=== PATIENT | male | born 1940 | race Caucasian/White ===

== ENCOUNTER → 2016-09-08 | Day surgery (SDC) | payer MEDICARE, OTHER ==
[~2016-09-08] VITALS: Ht 190.5 cm; Wt 99.9 kg
[~2016-09-08] MED LIST: ALLOPURINOL300 MG PO; AMARYL1 MG PO; ASPIRIN E.C. 8181 MG PO; B-121000 MCG PO; BACTRIM DS 8001 TAB PO; BYSTOLIC10 MG PO; CRESTOR 10MG10 MG PO; CULTURELLE CAP1 EAC1 PO; CULTURELLE10 Billion PO; CYMBALTA 60MG60 MG PO; DOXYCYCLINE; DOXYCYCLINE HY100 MG PO; DULCOLAX S10 MG/SUPP RC; DUO-KAPS1 CAP PO; ETODOLAC ER500 MG PO; FLOMAX 0.40.4 MG/CAP PO; GABAPENTIN; GLUCOPHAGE1000 MG PO; HCTZ 25MG TAB25 MG PO; HORIZANT600 MG PO; INVANZ INJ1 G/VIAL IV; JANUMET 1000 MG1 TA1 PO; LIDODERM 5% PATC1 EA TP; LODINE PO; LUNESTA 1MG TAB1 MG PO; LUTEIN 15 MG-0.1 SGL PO; MACROBID 1100 MG/CAP PO; MAREPA1200 MG PO; MASON NATURAL1200 MG PO; MELATONIN PO; MELATONIN5 M1 PO; NEURONTIN600 MG/TAB PO; PAMELOR 25MG25 MG PO; PROSCAR 5MG5 MG PO; RAPAFLO8 MG; REQUIP0.25 MG PO; TESTOST TOP; TYLENOL EXTRA500 M1 PO; ULTRAM 50MG TAB50 MG PO; VANCOCIN HCL1 GM IV; VITAMIN B11000 MCG/M IM; VITAMIND3 5000 PO; VOGELXO; XANAX .25M0.25 MG/TA PO; ZYLOPRIM 100MG100 MG PO; [UNRECOGNIZED DRUG - REMARK]
[2016-09-08 13:45] VITALS: BP 134/66; PULSE 66; TEMP 97.7
[2016-09-08 15:54] VITALS: BP 101/59; PULSE 71; TEMP 98.6
[2016-09-08 16:10] VITALS: BP 144/95; PULSE 67
[2016-09-08 16:25] VITALS: BP 96/52; PULSE 68
== END ==
LOC: SDCO 12:02
DX: M86.171 Other acute osteomyelitis, right ankle and foot (principal); M86.671 Other chronic osteomyelitis, right ankle and foot; M20.41 Other hammer toe(s) (acquired), right foot; M10.9 Gout, unspecified; G47.33 Obstructive sleep apnea (adult) (pediatric); E11.40 Type 2 diabetes mellitus with diabetic neuropathy, unspecified; E29.1 Testicular hypofunction; M19.042 Primary osteoarthritis, left hand; M19.041 Primary osteoarthritis, right hand; M47.896 Other spondylosis, lumbar region; E78.5 Hyperlipidemia, unspecified; N40.0 Benign prostatic hyperplasia without lower urinary tract symptoms; N52.9 Male erectile dysfunction, unspecified; I11.9 Hypertensive heart disease without heart failure; Z79.899 Other long term (current) drug therapy; Z86.14 Personal history of Methicillin resistant Staphylococcus aureus infection
CPT/HCPCS: J0690; J1100; J1885; J2250; J2405; J2704; J2765; J3010; J3370; J7030; J7050

== ENCOUNTER → 2017-01-03 | Outpatient (CLI) | payer MEDICARE, OTHER | LOC: MHCPAIN 09:30 | DX: G89.29 Other chronic pain (principal); M47.817 Spondylosis without myelopathy or radiculopathy, lumbosacral region; M48.06 Spinal stenosis, lumbar region | CPT/HCPCS: G0463 ==

== ENCOUNTER 2017-01-24 14:36 | Day surgery (SDC) | payer MEDICARE, OTHER ==
[~2017-01-24] VITALS: Ht 190.5 cm; Wt 97.4 kg
[~2017-01-24 14:36] MED LIST changes: -ASPIRIN E.C. 8181 MG PO; -LODINE PO; -MELATONIN5 M1 PO; -VOGELXO
[2017-01-24 15:17] VITALS: BP 136/66; PULSE 70; TEMP 98
[2017-01-24] MEDS ORDERED: DOXYCYCLINE HY100 MG PO (15:37)
[2017-01-24] MEDS ORDERED: LODINE PO (15:39)
[2017-01-24] MEDS ORDERED: GLUCOPHAGE1000 MG PO (15:44)
[2017-01-24] MEDS ORDERED: MELATONIN5 M1 PO (15:47)
[2017-01-24] MEDS ORDERED: ASPIRIN E.C. 8181 MG PO (15:57)
[2017-01-24] MEDS ORDERED: B-121000 MCG PO (16:09)
[2017-01-24] MEDS ORDERED: VOGELXO (16:10)
[2017-01-24 19:15] VITALS: BP 110/79; PULSE 75
[2017-01-24 19:31] VITALS: BP 141/82; PULSE 72
== END 2017-01-24 19:56 | disposition home or self-care (01) ==
LOC: SDCO 14:36 → JCC 18:07 → SDCO 19:56
DX: L97.519 Non-pressure chronic ulcer of other part of right foot with unspecified severity (principal); M19.90 Unspecified osteoarthritis, unspecified site; M86.171 Other acute osteomyelitis, right ankle and foot; E11.42 Type 2 diabetes mellitus with diabetic polyneuropathy; I10 Essential (primary) hypertension; E78.5 Hyperlipidemia, unspecified; G47.33 Obstructive sleep apnea (adult) (pediatric); F10.19 Alcohol abuse with unspecified alcohol-induced disorder; E66.3 Overweight; S12.201A Unspecified nondisplaced fracture of third cervical vertebra, initial encounter for closed fracture; N40.1 Benign prostatic hyperplasia with lower urinary tract symptoms; E79.0 Hyperuricemia without signs of inflammatory arthritis and tophaceous disease; F41.9 Anxiety disorder, unspecified; M10.9 Gout, unspecified; F32.9 Major depressive disorder, single episode, unspecified; Z82.49 Family history of ischemic heart disease and other diseases of the circulatory system; Z80.0 Family history of malignant neoplasm of digestive organs; Z82.61 Family history of arthritis; Z79.4 Long term (current) use of insulin; W10.9XXA Fall (on) (from) unspecified stairs and steps, initial encounter
CPT/HCPCS: OP; J0690; J2704; J3010; J7030

== ENCOUNTER → 2017-08-06 | Outpatient (CLI) | payer MEDICARE, OTHER ==
[~2017-08-06] MED LIST changes: +ASPIRIN E.C. 8181 MG PO; +LODINE PO; +MELATONIN5 M1 PO; +VOGELXO
== END ==
LOC: ZCOL.LAB 16:09
DX: Z11.2 Encounter for screening for other bacterial diseases (principal)

== ENCOUNTER 2017-09-18 08:45 | Outpatient (RCR) | payer MEDICARE, OTHER | END 2017-12-04 08:56 | disposition home or self-care (01) | LOC: WSPT 08:45 | DX: Z47.89 Encounter for other orthopedic aftercare (principal); Z98.1 Arthrodesis status | CPT/HCPCS: G8978-GP; G8979-GP ==

== ENCOUNTER 2018-01-20 10:08 | Emergency (ER) | payer MEDICARE, OTHER ==
[~2018-01-20] VITALS: Ht 190.5 cm; Wt 101.4 kg
[2018-01-20 10:10] VITALS: TEMP 98
[2018-01-20] MEDS ORDERED: LYRICA 150MG C150 MG PO (10:46)
[2018-01-20] MEDS ORDERED: CYMBALTA 60MG60 MG PO (10:48)
[2018-01-20] MEDS ORDERED: LODINE PO (10:48)
[2018-01-20] MEDS ORDERED: CRESTOR 10MG10 MG PO (10:49)
[2018-01-20] MEDS ORDERED: ULTRAM 50MG TAB50 MG PO (10:49)
[2018-01-20] MEDS ORDERED: LIDODERM 5% PATC1 EA TP (10:49)
[2018-01-20] MEDS ORDERED: GLUCOPHAGE500 MG/TAB PO (10:50)
[2018-01-20] MEDS ORDERED: JANUVIA50 MG PO (10:50)
[2018-01-20] MEDS ORDERED: BYSTOLIC10 MG PO (10:51)
[2018-01-20] MEDS ORDERED: ZYLOPRIM 100MG100 MG PO (10:51)
[2018-01-20] MEDS ORDERED: HCTZ 25MG TAB25 MG PO (10:51)
[2018-01-20] MEDS ORDERED: LUNESTA3 MG PO (10:52)
[2018-01-20] MEDS ORDERED: REQUIP0.25 MG PO (10:53)
[2018-01-20] MEDS ORDERED: PROSCAR 5MG5 MG PO (10:53)
[2018-01-20] MEDS ORDERED: B-121000 MCG PO (10:54)
[2018-01-20] MEDS ORDERED: COLACE 100100 MG/CAP PO (10:54)
[2018-01-20] MEDS ORDERED: BENEFIBER PO (10:54)
[2018-01-20] MEDS ORDERED: VITAMIND3 5000 PO (10:56)
[2018-01-20] MEDS ORDERED: ONE-A-DAY MEN'S1 TAB PO (10:57)
[2018-01-20] MEDS ORDERED: LUTEIN20 M1 PO (10:58)
[2018-01-20] MEDS ORDERED: MASON NATURAL1200 MG PO (10:58)
[2018-01-20] MEDS ORDERED: ZEAXANTHIN PO (10:59)
[2018-01-20] MEDS ORDERED: MELATONIN5 M1 PO (10:59)
[2018-01-20] MEDS ORDERED: ASPIRIN E.C. 8181 MG PO (11:00)
[2018-01-20 11:01] LABS: BASO % 0.4 % (0.0-2.0); EOS # 0.3 (0.0-0.7); EOS % 5.1 % (0-4.0); GRAN # 3.4 (1.4-6.5); GRAN % 67.6 % (42.2-75.2); HEMATOCRIT 30.7 % (42.0-52.0); HEMOGLOBIN 10.4 g/dl (13.5-18.0); LYMPH % 18.8 % (20.0-51.0); MEAN CELL VOLUME 87 fl (80.0-100.0); MEAN CORPUSCULAR HEMOGLOBIN 30 pg (27.0-31.0); MEAN CORPUSCULAR HGB CONC 34 g/dl (33.0-37.0); MEAN PLATELET VOLUME 11.1 fl (7.4-10.4); MONO # 0.4 (0.1-0.6); MONO % 7.7 % (1.7-9.3); PLATELET COUNT 192 K/mm3 (130-400); RED BLOOD COUNT 3.53 M/mm3 (4.20-5.60); REDCELL DISTRIBUTION WIDTH-CV 14.7 % (11.5-14.5)
[2018-01-20 11:12] LABS: ALBUMIN 3.4 gm/dL (3.5-5.0); BILIRUBIN,TOTAL 0.5 mg/dL (0.0-1.0); C-REACTIVE PROTEIN 3.1 mg/dL (0.0-0.9); CALCIUM 9.1 mg/dL (8.4-10.2); CREATININE, serum 0.98 mg/dL (0.66-1.25); TOTAL PROTEIN 6.6 gm/dL (6.4-8.2)
[2018-01-20 13:35] VITALS: BP 129/63; PULSE 59
[2018-01-20] MEDS ORDERED: WALKER MC (14:10)
== END 2018-01-20 14:10 | disposition home or self-care (01) ==
LOC: COL.ER 10:08
PROVIDERS: Physician Assistant
DX: T84.117A Breakdown (mechanical) of internal fixation device of bone of left lower leg, initial encounter (principal); M25.572 Pain in left ankle and joints of left foot; E11.42 Type 2 diabetes mellitus with diabetic polyneuropathy; Z79.82 Long term (current) use of aspirin; Z79.84 Long term (current) use of oral hypoglycemic drugs; Z79.891 Long term (current) use of opiate analgesic

== ENCOUNTER 2018-02-05 16:00 | Outpatient (RCR) | payer MEDICARE, OTHER ==
[~2018-02-05 16:00] MED LIST changes: +BENEFIBER PO; +COLACE 100100 MG/CAP PO; +GLUCOPHAGE500 MG/TAB PO; +JANUVIA50 MG PO; +LUNESTA3 MG PO; +LUTEIN20 M1 PO; +LYRICA 150MG C150 MG PO; +ONE-A-DAY MEN'S1 TAB PO; +WALKER MC; +ZEAXANTHIN PO
[2018-02-14] MEDS ORDERED: LYRICA 150MG C150 MG PO ×2 (16:53)
[2018-02-14] MEDS ORDERED: LODINE PO (16:56)
[2018-02-14] MEDS ORDERED: CYMBALTA 60MG60 MG PO (16:56)
[2018-02-14] MEDS ORDERED: LIDODERM 5% PATC1 EA TP (16:57)
[2018-02-14] MEDS ORDERED: ULTRAM 50MG TAB50 MG PO (16:58)
[2018-02-14] MEDS ORDERED: CRESTOR 10MG10 MG PO (16:59)
[2018-02-14] MEDS ORDERED: JANUVIA50 MG PO (17:00)
[2018-02-14] MEDS ORDERED: GLUCOPHAGE500 MG/TAB PO (17:00)
[2018-02-14] MEDS ORDERED: ZYLOPRIM 100MG100 MG PO (17:01)
[2018-02-14] MEDS ORDERED: BYSTOLIC10 MG PO (17:01)
[2018-02-14] MEDS ORDERED: HCTZ 25MG TAB25 MG PO (17:02)
[2018-02-14] MEDS ORDERED: REQUIP0.25 MG PO (17:03)
[2018-02-14] MEDS ORDERED: LUNESTA3 MG PO (17:03)
[2018-02-14] MEDS ORDERED: PROSCAR 5MG5 MG PO (17:04)
[2018-02-14] MEDS ORDERED: COLACE 100100 MG/CAP PO (17:04)
[2018-02-14] MEDS ORDERED: BENEFIBER PO (17:05)
[2018-02-14] MEDS ORDERED: B-121000 MCG PO (17:06)
[2018-02-14] MEDS ORDERED: VITAMIND3 5000 PO (17:06)
[2018-02-14] MEDS ORDERED: THERA1 TAB PO (17:07)
[2018-02-14] MEDS ORDERED: LUTEIN 15 MG-0.1 SGL PO (17:08)
[2018-02-14] MEDS ORDERED: MASON NATURAL1200 MG PO (17:09)
[2018-02-14] MEDS ORDERED: MELATONIN5 M1 SL (17:10)
[2018-02-14] MEDS ORDERED: VITAMIN B11000 MCG/M IM (17:11)
[2018-02-14] MEDS ORDERED: ASPIRIN 81M81 MG/TA2 PO (17:11)
[2018-02-21] MEDS ORDERED: OMNICEF 300MG300 MG PO (10:21)
[2018-02-21] MEDS ORDERED: IPRATROPIUM BROM3 M1 IH (10:22)
[2018-02-21] MEDS ORDERED: TYLENOL 325MG325 MG PO (10:23)
[2018-02-21] MEDS ORDERED: SEROQUEL 2525 MG/TAB PO (10:50)
[2018-02-21] MEDS ORDERED: PROBIOTIC ACID1 EAC3 PO (10:51)
[2018-02-21] MEDS ORDERED: *Potassium Replaceme MC (10:53)
[2018-03-11] MEDS ORDERED: DULCOLAX S10 MG/SUPP RC (08:48)
[2018-03-11] MEDS ORDERED: LIDODERM 5% PATC1 EA TP (08:48)
[2018-03-11] MEDS ORDERED: MIRALAX PA17 GM/Dose PO (08:49)
[2018-03-11] MEDS ORDERED: SENOKOT S 50 MG1 TAB PO (08:49)
[2018-03-11] MEDS ORDERED: COLACE 100100 MG/CAP PO (08:49)
[2018-03-11] MEDS ORDERED: GLUCOPHAGE1000 MG PO (08:50)
[2018-03-11] MEDS ORDERED: MAG-OX 400400 MG/TAB PO (08:51)
[2018-03-11] MEDS ORDERED: JANUVIA50 MG PO (08:51)
[2018-03-11] MEDS ORDERED: AMBIEN 5MG TABLE5 MG PO (08:52)
[2018-03-12] MEDS ORDERED: NORCO 325 MG-51 TAB PO (09:03)
== END 2018-03-26 | disposition home or self-care (01) ==
LOC: WSPT
DX: Z47.89 Encounter for other orthopedic aftercare (principal); Z98.1 Arthrodesis status
CPT/HCPCS: G8978-GP; G8979-GP

== ENCOUNTER 2018-02-14 09:52 | Inpatient (IN) | payer MEDICARE, OTHER ==
[~2018-02-14] VITALS: Ht 190.5 cm; Wt 112.2 kg
[2018-02-14] VITALS (341 sets, daily range): BP systolic 104–115; BP diastolic 63–104; PULSE 68–75; TEMP 97.1–97.4; O2SAT 79–100
[2018-02-14 10:14] LABS: BASO % 0.2 % (0.0-2.0); EOS # 0.3 (0.0-0.7); EOS % 3.8 % (0-4.0); GRAN # 6.3 (1.4-6.5); GRAN % 74.3 % (42.2-75.2); LYMPH # 0.8 (1.2-3.4); LYMPH % 9.1 % (20.0-51.0); MEAN CELL VOLUME 87 fl (80.0-100.0); MEAN CORPUSCULAR HGB CONC 35 g/dl (33.0-37.0); MEAN PLATELET VOLUME 11.3 fl (7.4-10.4); MONO % 11.8 % (1.7-9.3); PLATELET COUNT 138 K/mm3 (130-400); RED BLOOD COUNT 3.26 M/mm3 (4.20-5.60); REDCELL DISTRIBUTION WIDTH-CV 15.8 % (11.5-14.5)
[2018-02-14 10:16] LABS: HEMATOCRIT 28.2 % (42.0-52.0); HEMOGLOBIN 9.8 g/dl (13.5-18.0); MEAN CORPUSCULAR HEMOGLOBIN 30 pg (27.0-31.0)
[2018-02-14 10:28] LABS: ALANINE AMINOTRANSFERASE 38 U/L (21-72); ALKALINE PHOSPHATASE 107 U/L (50-136); ANION GAP 9 mmol/L (7-16); AST,SGOT 22 U/L (15-37); BILIRUBIN,TOTAL 0.9 mg/dL (0.0-1.0); BLOOD UREA NITROGEN 55 mg/dL (9-20); CALCIUM 8.4 mg/dL (8.4-10.2); CARBON DIOXIDE 25 mmol/L (22-30); CHLORIDE 95 mmol/L (98-107); GLUCOSE 109 mg/dL (74-106); SODIUM 130 mmol/L (137-145); TOTAL PROTEIN 5.9 gm/dL (6.4-8.2)
[2018-02-14 10:31] LABS: ALCOHOL(ethanol),MEDICAL < 10 mg/dL; CREATININE, serum 4.04 mg/dL (0.66-1.25)
[2018-02-14 10:55] LABS: COLLECTION METHOD CLEAN CATCH
[2018-02-14 11:03] LABS: C-REACTIVE PROTEIN 38.8 mg/dL (0.0-0.9)
[2018-02-14 11:34] LABS: MUCOUS Present /lpf; PH 5 (5-8); RED BLOOD CELL CAST >12 /lpf; SQUAMOUS EPITHELIAL 0-2 /hpf; URINE APPEARANCE Cloudy; URINE BACTERIA Rare /hpf; URINE BILIRUBIN Positive (NEGATIVE); URINE BLOOD 2+ (NEGATIVE); URINE COLOR Amber; URINE GLUCOSE Negative (NEGATIVE); URINE KETONE Negative (NEGATIVE); URINE LEUKOCYTE ESTERASE Negative (NEGATIVE); URINE NITRATE Negative (NEGATIVE); URINE PROTEIN(semi-quant) 1+ (NEGATIVE); URINE UROBILINOGEN >=4.0 mg/dL (NEGATIVE)
[2018-02-14] MEDS ORDERED: LYRICA 150MG C150 MG PO ×2 (16:53)
[2018-02-14] MEDS ORDERED: CYMBALTA 60MG60 MG PO (16:56)
[2018-02-14] MEDS ORDERED: LODINE PO (16:56)
[2018-02-14] MEDS ORDERED: LIDODERM 5% PATC1 EA TP (16:57)
[2018-02-14] MEDS ORDERED: ULTRAM 50MG TAB50 MG PO (16:58)
[2018-02-14] MEDS ORDERED: CRESTOR 10MG10 MG PO (16:59)
[2018-02-14] MEDS ORDERED: GLUCOPHAGE500 MG/TAB PO (17:00)
[2018-02-14] MEDS ORDERED: JANUVIA50 MG PO (17:00)
[2018-02-14] MEDS ORDERED: BYSTOLIC10 MG PO (17:01)
[2018-02-14] MEDS ORDERED: ZYLOPRIM 100MG100 MG PO (17:01)
[2018-02-14] MEDS ORDERED: HCTZ 25MG TAB25 MG PO (17:02)
[2018-02-14] MEDS ORDERED: LUNESTA3 MG PO (17:03)
[2018-02-14] MEDS ORDERED: REQUIP0.25 MG PO (17:03)
[2018-02-14] MEDS ORDERED: COLACE 100100 MG/CAP PO (17:04)
[2018-02-14] MEDS ORDERED: PROSCAR 5MG5 MG PO (17:04)
[2018-02-14] MEDS ORDERED: BENEFIBER PO (17:05)
[2018-02-14] MEDS ORDERED: VITAMIND3 5000 PO (17:06)
[2018-02-14] MEDS ORDERED: B-121000 MCG PO (17:06)
[2018-02-14] MEDS ORDERED: THERA1 TAB PO (17:07)
[2018-02-14] MEDS ORDERED: LUTEIN 15 MG-0.1 SGL PO (17:08)
[2018-02-14] MEDS ORDERED: MASON NATURAL1200 MG PO (17:09)
[2018-02-14] MEDS ORDERED: MELATONIN5 M1 SL (17:10)
[2018-02-14] MEDS ORDERED: VITAMIN B11000 MCG/M IM (17:11)
[2018-02-14] MEDS ORDERED: ASPIRIN 81M81 MG/TA2 PO (17:11)
[2018-02-14 19:19] LABS: CALCIUM 8.1 mg/dL (8.4-10.2); POTASSIUM 4.1 mmol/L (3.4-5.0)
[2018-02-14 19:21] LABS: CREATININE, serum 4.17 mg/dL (0.66-1.25)
[2018-02-15] VITALS (411 sets, daily range): BP systolic 90–129; BP diastolic 66–96; PULSE 63–73; TEMP 97.1–98.1; O2SAT 81–100
[2018-02-15 06:26] LABS: BASO % 0.2 % (0.0-2.0); EOS # 0.3 (0.0-0.7); EOS % 5.5 % (0-4.0); GRAN # 4.2 (1.4-6.5); GRAN % 68.4 % (42.2-75.2); LYMPH # 0.9 (1.2-3.4); LYMPH % 14.5 % (20.0-51.0); MEAN CELL VOLUME 87 fl (80.0-100.0); MEAN CORPUSCULAR HGB CONC 33 g/dl (33.0-37.0); MEAN PLATELET VOLUME 11.8 fl (7.4-10.4); MONO # 0.7 (0.1-0.6); MONO % 10.7 % (1.7-9.3); PLATELET COUNT 152 K/mm3 (130-400); RED BLOOD COUNT 3.13 M/mm3 (4.20-5.60); REDCELL DISTRIBUTION WIDTH-CV 15.8 % (11.5-14.5)
[2018-02-15 06:29] LABS: HEMATOCRIT 27.3 % (42.0-52.0); HEMOGLOBIN 9.1 g/dl (13.5-18.0); MEAN CORPUSCULAR HEMOGLOBIN 29 pg (27.0-31.0)
[2018-02-15 06:39] LABS: ALBUMIN 2.6 gm/dL (3.5-5.0); BILIRUBIN,TOTAL 0.7 mg/dL (0.0-1.0); CALCIUM 8.4 mg/dL (8.4-10.2); POTASSIUM 3.9 mmol/L (3.4-5.0); TOTAL PROTEIN 5.4 gm/dL (6.4-8.2)
[2018-02-15 06:47] LABS: CREATININE, serum 4.32 mg/dL (0.66-1.25)
[2018-02-15 17:18] LABS: COLLECTION METHOD CATHETER
[2018-02-15 17:40] LABS: URINE PROTEIN:CREAT RATIO 1.05 (0.00-0.14)
[2018-02-15 17:47] LABS: AMORPHOUS CRYSTAL Present /uL; BUDDING YEAST Present /hpf; GRANULAR CAST >12 /lpf; MUCOUS Present /lpf; PH 5 (5-8); SQUAMOUS EPITHELIAL 0-2 /hpf; URINE APPEARANCE Cloudy; URINE BACTERIA Rare /hpf; URINE BILIRUBIN Negative (NEGATIVE); URINE BLOOD 2+ (NEGATIVE); URINE COLOR Yellow; URINE GLUCOSE Negative (NEGATIVE); URINE KETONE Negative (NEGATIVE); URINE LEUKOCYTE ESTERASE 1+ (NEGATIVE); URINE NITRATE Negative (NEGATIVE); URINE PROTEIN(semi-quant) 1+ (NEGATIVE); URINE RBC 20-50 /hpf
[2018-02-16 04:34] VITALS: BP 145/70; PULSE 64; TEMP 97.8
[2018-02-16 07:40] VITALS: BP 113/67; PULSE 59; TEMP 98.2
[2018-02-16 08:20] LABS: BASO % 0.4 % (0.0-2.0); EOS # 0.3 (0.0-0.7); EOS % 7.2 % (0-4.0); GRAN # 3.3 (1.4-6.5); GRAN % 68.6 % (42.2-75.2); LYMPH # 0.7 (1.2-3.4); LYMPH % 14.8 % (20.0-51.0); MEAN CELL VOLUME 88 fl (80.0-100.0); MEAN CORPUSCULAR HGB CONC 33 g/dl (33.0-37.0); MEAN PLATELET VOLUME 11.5 fl (7.4-10.4); MONO # 0.4 (0.1-0.6); MONO % 8.6 % (1.7-9.3); PLATELET COUNT 169 K/mm3 (130-400); RED BLOOD COUNT 3.18 M/mm3 (4.20-5.60); REDCELL DISTRIBUTION WIDTH-CV 15.7 % (11.5-14.5)
[2018-02-16 08:25] LABS: HEMATOCRIT 28.1 % (42.0-52.0); HEMOGLOBIN 9.2 g/dl (13.5-18.0); MEAN CORPUSCULAR HEMOGLOBIN 29 pg (27.0-31.0)
[2018-02-16 08:29] LABS: CALCIUM 8.3 mg/dL (8.4-10.2); CREATININE, serum 3.67 mg/dL (0.66-1.25)
[2018-02-16 11:43] VITALS: BP 119/62; PULSE 63; TEMP 97.7
[2018-02-16 16:22] VITALS: BP 123/52; PULSE 94; TEMP 97.9
[2018-02-16 19:21] VITALS: BP 125/52; PULSE 68; TEMP 97.5
[2018-02-17] VITALS (8 sets, daily range): BP systolic 98–151; BP diastolic 48–99; PULSE 53–117; TEMP 97.6–101.5
[2018-02-17 10:26] LABS: BASO % 0.1 % (0.0-2.0); EOS % 0.4 % (0-4.0); GRAN # 7.7 (1.4-6.5); GRAN % 85.6 % (42.2-75.2); LYMPH # 0.6 (1.2-3.4); LYMPH % 6.4 % (20.0-51.0); MEAN CELL VOLUME 86 fl (80.0-100.0); MEAN CORPUSCULAR HGB CONC 34 g/dl (33.0-37.0); MEAN PLATELET VOLUME 10.8 fl (7.4-10.4); MONO # 0.6 (0.1-0.6); MONO % 6.8 % (1.7-9.3); PLATELET COUNT 183 K/mm3 (130-400); RED BLOOD COUNT 3.15 M/mm3 (4.20-5.60); REDCELL DISTRIBUTION WIDTH-CV 15.6 % (11.5-14.5)
[2018-02-17 10:27] LABS: HEMOGLOBIN 9.1 g/dl (13.5-18.0); MEAN CORPUSCULAR HEMOGLOBIN 29 pg (27.0-31.0)
[2018-02-17 10:29] LABS: CALCIUM 9.2 mg/dL (8.4-10.2); CREATININE, serum 2.62 mg/dL (0.66-1.25); POTASSIUM 4.3 mmol/L (3.4-5.0)
[2018-02-17 21:54] LABS: ARTERIAL BLD GAS O2 SATURATION 92.7 % (92-100); ARTERIAL BLD GAS TCO2 CT 21.2; ARTERIAL BLOOD GAS BASE EXCESS -1.8 (-2-2); ARTERIAL BLOOD GAS HCO3 20.3 meq/L (22-26); ARTERIAL BLOOD GAS PCO2 27.5 mmHg (35-45); ARTERIAL BLOOD GAS PO2 65.8 mmHg (80-100); ARTERIAL BLOOD GAS pH 7.49 (7.35-7.45)
[2018-02-18 03:34] VITALS: BP 149/53; PULSE 93; TEMP 101.9
[2018-02-18 05:44] VITALS: TEMP 99.8
[2018-02-18 09:28] LABS: BASO % 0.2 % (0.0-2.0); EOS % 0.1 % (0-4.0); GRAN # 7.1 (1.4-6.5); GRAN % 84.4 % (42.2-75.2); HEMATOCRIT 25.3 % (42.0-52.0); HEMOGLOBIN 8.5 g/dl (13.5-18.0); LYMPH # 0.6 (1.2-3.4); LYMPH % 6.6 % (20.0-51.0); MEAN CELL VOLUME 85 fl (80.0-100.0); MEAN CORPUSCULAR HEMOGLOBIN 29 pg (27.0-31.0); MEAN CORPUSCULAR HGB CONC 34 g/dl (33.0-37.0); MEAN PLATELET VOLUME 10.5 fl (7.4-10.4); MONO # 0.6 (0.1-0.6); MONO % 7.3 % (1.7-9.3); PLATELET COUNT 175 K/mm3 (130-400); RED BLOOD COUNT 2.98 M/mm3 (4.20-5.60); REDCELL DISTRIBUTION WIDTH-CV 15.6 % (11.5-14.5)
[2018-02-18 09:46] LABS: CALCIUM 9.1 mg/dL (8.4-10.2); CREATININE, serum 2.02 mg/dL (0.66-1.25); POTASSIUM 3.8 mmol/L (3.4-5.0)
[2018-02-18 12:21] LABS: COLLECTION METHOD CATHETER
[2018-02-18 12:31] VITALS: BP 142/58; PULSE 68; TEMP 97.2
[2018-02-18 12:31] LABS: BUDDING YEAST Present /hpf; MUCOUS Present /lpf; PH 5 (5-8); SQUAMOUS EPITHELIAL 0-2 /hpf; URINE APPEARANCE Cloudy; URINE BACTERIA Rare /hpf; URINE BILIRUBIN Negative (NEGATIVE); URINE BLOOD 2+ (NEGATIVE); URINE COLOR Yellow; URINE GLUCOSE Negative (NEGATIVE); URINE KETONE Trace (NEGATIVE); URINE LEUKOCYTE ESTERASE 2+ (NEGATIVE); URINE NITRATE Negative (NEGATIVE); URINE PROTEIN(semi-quant) 1+ (NEGATIVE); URINE RBC 20-50 /hpf
[2018-02-18 16:00] VITALS: BP 145/66; PULSE 79; TEMP 97.8
[2018-02-18 20:25] VITALS: BP 133/54; PULSE 76; TEMP 98.8
[2018-02-19 00:26] VITALS: BP 146/59; PULSE 74; TEMP 98
[2018-02-19 03:37] VITALS: BP 144/66; PULSE 74; TEMP 97.8
[2018-02-19 07:38] LABS: MEAN CELL VOLUME 87 fl (80.0-100.0); MEAN CORPUSCULAR HGB CONC 33 g/dl (33.0-37.0); MEAN PLATELET VOLUME 10.3 fl (7.4-10.4); PLATELET COUNT 193 K/mm3 (130-400); RED BLOOD COUNT 3.04 M/mm3 (4.20-5.60); REDCELL DISTRIBUTION WIDTH-CV 15.5 % (11.5-14.5)
[2018-02-19 07:50] LABS: HEMATOCRIT 26.4 % (42.0-52.0); HEMOGLOBIN 8.6 g/dl (13.5-18.0); MEAN CORPUSCULAR HEMOGLOBIN 28 pg (27.0-31.0)
[2018-02-19 07:56] VITALS: BP 107/89; PULSE 70; TEMP 97.6
[2018-02-19 07:56] LABS: ALBUMIN 2.7 gm/dL (3.5-5.0); BILIRUBIN,TOTAL 0.5 mg/dL (0.0-1.0); CREATININE, serum 1.56 mg/dL (0.66-1.25); POTASSIUM 3.5 mmol/L (3.4-5.0); TOTAL PROTEIN 5.6 gm/dL (6.4-8.2)
[2018-02-19 09:19] LABS: BAND 11 % (0-10); LYMPHOCYTE 6 % (20.0-51.0); NEUTROPHILS 81 % (42.0-75.2)
[2018-02-19 09:20] LABS: ANISOCYTOSIS 1+; HYPOCHROMIA 1+; PLATELET ESTIMATE NORMAL (NORMAL)
[2018-02-19 11:04] VITALS: BP 132/96; PULSE 82; TEMP 98
[2018-02-19 20:00] VITALS: BP 121/47; PULSE 81; TEMP 98.8
[2018-02-20] VITALS (7 sets, daily range): BP systolic 134–172; BP diastolic 50–98; PULSE 64–84; TEMP 97.5–98.7
[2018-02-20 06:36] LABS: MEAN CELL VOLUME 87 fl (80.0-100.0); MEAN CORPUSCULAR HGB CONC 33 g/dl (33.0-37.0); PLATELET COUNT 201 K/mm3 (130-400); RED BLOOD COUNT 3.04 M/mm3 (4.20-5.60); REDCELL DISTRIBUTION WIDTH-CV 15.8 % (11.5-14.5)
[2018-02-20 06:38] LABS: HEMATOCRIT 26.4 % (42.0-52.0); HEMOGLOBIN 8.7 g/dl (13.5-18.0); MEAN CORPUSCULAR HEMOGLOBIN 29 pg (27.0-31.0)
[2018-02-20 06:49] LABS: CALCIUM 8.8 mg/dL (8.4-10.2); CREATININE, serum 1.34 mg/dL (0.66-1.25); POTASSIUM 3.3 mmol/L (3.4-5.0)
[2018-02-20 07:37] LABS: BAND 4 % (0-10); EOSINOPHIL 2 % (0-4); LYMPHOCYTE 14 % (20.0-51.0); NEUTROPHILS 79 % (42.0-75.2); PLATELET ESTIMATE NORMAL (NORMAL); TOXIC GRANULATION PRESENT
[2018-02-21 03:18] VITALS: BP 130/66; PULSE 78; TEMP 98.5
[2018-02-21 06:58] LABS: MEAN CELL VOLUME 86 fl (80.0-100.0); MEAN CORPUSCULAR HGB CONC 33 g/dl (33.0-37.0); MEAN PLATELET VOLUME 9.8 fl (7.4-10.4); PLATELET COUNT 199 K/mm3 (130-400); RED BLOOD COUNT 3.07 M/mm3 (4.20-5.60); REDCELL DISTRIBUTION WIDTH-CV 15.6 % (11.5-14.5)
[2018-02-21 06:59] LABS: HEMATOCRIT 26.4 % (42.0-52.0); HEMOGLOBIN 8.8 g/dl (13.5-18.0); MEAN CORPUSCULAR HEMOGLOBIN 29 pg (27.0-31.0)
[2018-02-21 07:04] LABS: CALCIUM 8.7 mg/dL (8.4-10.2); CREATININE, serum 1.13 mg/dL (0.66-1.25)
[2018-02-21 07:48] LABS: BAND 18 % (0-10); BASOPHIL 1 % (0-2); EOSINOPHIL 1 % (0-4); LYMPHOCYTE 4 % (20.0-51.0); NEUTROPHILS 75 % (42.0-75.2); PLATELET ESTIMATE NORMAL (NORMAL)
[2018-02-21 09:41] VITALS: BP 181/71; PULSE 82; TEMP 98.1
[2018-02-21 10:19] VITALS: BP 158/55; PULSE 77
[2018-02-21] MEDS ORDERED: OMNICEF 300MG300 MG PO (10:21)
[2018-02-21] MEDS ORDERED: IPRATROPIUM BROM3 M1 IH (10:22)
[2018-02-21] MEDS ORDERED: TYLENOL 325MG325 MG PO (10:23)
[2018-02-21] MEDS ORDERED: SEROQUEL 2525 MG/TAB PO (10:50)
[2018-02-21] MEDS ORDERED: PROBIOTIC ACID1 EAC3 PO (10:51)
[2018-02-21] MEDS ORDERED: *Potassium Replaceme MC (10:53)
[2018-02-21 12:51] VITALS: BP 158/55; PULSE 77; TEMP 98.1
== END 2018-02-21 13:35 | DRG 682 ==
LOC: COL.ER 09:52 → MEDICAL 10:52 → ICU 10:52 → MEDICAL 02-15 17:43
PROVIDERS: Family Medicine; Internal Medicine Nephrology; Nurse Practitioner; Nurse Practitioner Family; Physician Assistant
DX: N17.9 Acute kidney failure, unspecified (principal); G93.41 Metabolic encephalopathy; T83.518A Infection and inflammatory reaction due to other urinary catheter, initial encounter; E87.1 Hypo-osmolality and hyponatremia; T81.31XA Disruption of external operation (surgical) wound, not elsewhere classified, initial encounter; Z66 Do not resuscitate; I12.9 Hypertensive chronic kidney disease with stage 1 through stage 4 chronic kidney disease, or unspecified chronic kidney disease; E11.22 Type 2 diabetes mellitus with diabetic chronic kidney disease; N18.2 Chronic kidney disease, stage 2 (mild); T42.6X5A Adverse effect of other antiepileptic and sedative-hypnotic drugs, initial encounter; B95.61 Methicillin susceptible Staphylococcus aureus infection as the cause of diseases classified elsewhere; E87.6 Hypokalemia; E83.42 Hypomagnesemia; I27.29 Other secondary pulmonary hypertension; N40.1 Benign prostatic hyperplasia with lower urinary tract symptoms; R33.8 Other retention of urine; E11.42 Type 2 diabetes mellitus with diabetic polyneuropathy
CPT/HCPCS: 99223-AI; 99232-AI; 99233-AI; 99239; A9284; J0696; J1170; J1644; J2060; J3475; J7030; J7120

== ENCOUNTER 2018-02-21 13:40 | Inpatient (IN) | payer MEDICARE, OTHER ==
[~2018-02-21] VITALS: Ht 190.5 cm; Wt 97.7 kg
[~2018-02-21 13:40] MED LIST changes: +*Potassium Replaceme MC; +ASPIRIN 81M81 MG/TA2 PO; +IPRATROPIUM BROM3 M1 IH; +MELATONIN5 M1 SL; +OMNICEF 300MG300 MG PO; +PROBIOTIC ACID1 EAC3 PO; +SEROQUEL 2525 MG/TAB PO; +THERA1 TAB PO; +TYLENOL 325MG325 MG PO
[2018-02-21 17:14] VITALS: BP 154/55; PULSE 71; TEMP 97.3
[2018-02-22 03:11] VITALS: BP 155/59; PULSE 78; TEMP 98.9
[2018-02-22 06:51] LABS: CALCIUM 8.6 mg/dL (8.4-10.2); CREATININE, serum 1.04 mg/dL (0.66-1.25); MAGNESIUM 1.5 mg/dL (1.6-2.3); POTASSIUM 3.4 mmol/L (3.4-5.0)
[2018-02-22 18:53] VITALS: BP 125/69; PULSE 68; TEMP 97.7
[2018-02-23 06:00] VITALS: BP 153/66; PULSE 71; TEMP 99
[2018-02-23 18:03] VITALS: BP 137/80; PULSE 82; TEMP 97.9
[2018-02-24 06:00] VITALS: BP 165/62; PULSE 67; TEMP 98.1
[2018-02-24 07:35] LABS: POTASSIUM 3.4 mmol/L (3.4-5.0)
[2018-02-24 10:37] VITALS: BP 123/46; PULSE 68
[2018-02-24 11:09] LABS: BASO % 0.3 % (0.0-2.0); EOS # 0.2 (0.0-0.7); EOS % 2.3 % (0-4.0); GRAN # 4.8 (1.4-6.5); GRAN % 74.8 % (42.2-75.2); MEAN CELL VOLUME 88 fl (80.0-100.0); MEAN CORPUSCULAR HGB CONC 33 g/dl (33.0-37.0); MEAN PLATELET VOLUME 10.4 fl (7.4-10.4); MONO # 0.4 (0.1-0.6); MONO % 6.8 % (1.7-9.3); PLATELET COUNT 305 K/mm3 (130-400); REDCELL DISTRIBUTION WIDTH-CV 15.4 % (11.5-14.5)
[2018-02-24 11:11] LABS: HEMATOCRIT 28.1 % (42.0-52.0); HEMOGLOBIN 9.2 g/dl (13.5-18.0); MEAN CORPUSCULAR HEMOGLOBIN 29 pg (27.0-31.0)
[2018-02-24 11:54] LABS: ALBUMIN 2.8 gm/dL (3.5-5.0); BILIRUBIN,TOTAL 0.3 mg/dL (0.0-1.0); CALCIUM 9.2 mg/dL (8.4-10.2); CREATININE, serum 1.13 mg/dL (0.66-1.25); TOTAL PROTEIN 5.7 gm/dL (6.4-8.2)
[2018-02-24 16:25] VITALS: BP 112/63; PULSE 77; TEMP 98.1
[2018-02-25 04:58] VITALS: BP 131/52; PULSE 59; TEMP 98.6
[2018-02-25 06:55] LABS: BASO % 0.4 % (0.0-2.0); EOS # 0.3 (0.0-0.7); EOS % 3.9 % (0-4.0); GRAN % 72.2 % (42.2-75.2); LYMPH % 14.6 % (20.0-51.0); MEAN CELL VOLUME 89 fl (80.0-100.0); MEAN CORPUSCULAR HGB CONC 32 g/dl (33.0-37.0); MEAN PLATELET VOLUME 10.2 fl (7.4-10.4); MONO # 0.6 (0.1-0.6); MONO % 8.2 % (1.7-9.3); PLATELET COUNT 322 K/mm3 (130-400); RED BLOOD COUNT 2.96 M/mm3 (4.20-5.60); REDCELL DISTRIBUTION WIDTH-CV 15.5 % (11.5-14.5)
[2018-02-25 06:56] LABS: HEMATOCRIT 26.3 % (42.0-52.0); HEMOGLOBIN 8.4 g/dl (13.5-18.0); MEAN CORPUSCULAR HEMOGLOBIN 28 pg (27.0-31.0)
[2018-02-25 07:16] LABS: ALBUMIN 2.5 gm/dL (3.5-5.0); BILIRUBIN,TOTAL 0.3 mg/dL (0.0-1.0); CALCIUM 8.5 mg/dL (8.4-10.2); CREATININE, serum 1.14 mg/dL (0.66-1.25); MAGNESIUM 1.8 mg/dL (1.6-2.3); POTASSIUM 3.8 mmol/L (3.4-5.0); TOTAL PROTEIN 5.3 gm/dL (6.4-8.2)
[2018-02-25 17:07] VITALS: BP 143/57; PULSE 66; TEMP 98.8
[2018-02-26 06:00] VITALS: BP 138/55; PULSE 64; TEMP 98.5
[2018-02-26 17:53] VITALS: BP 108/69; PULSE 71; TEMP 98.1
[2018-02-27 06:33] VITALS: BP 138/50; PULSE 62; TEMP 98.5
[2018-02-27 06:37] LABS: BASO % 0.5 % (0.0-2.0); EOS # 0.2 (0.0-0.7); EOS % 3.6 % (0-4.0); GRAN # 4.4 (1.4-6.5); GRAN % 67.8 % (42.2-75.2); LYMPH # 1.1 (1.2-3.4); LYMPH % 17.6 % (20.0-51.0); MEAN CELL VOLUME 88 fl (80.0-100.0); MEAN CORPUSCULAR HGB CONC 32 g/dl (33.0-37.0); MEAN PLATELET VOLUME 10.4 fl (7.4-10.4); MONO # 0.6 (0.1-0.6); MONO % 9.9 % (1.7-9.3); PLATELET COUNT 340 K/mm3 (130-400); RED BLOOD COUNT 2.93 M/mm3 (4.20-5.60); REDCELL DISTRIBUTION WIDTH-CV 15.1 % (11.5-14.5); RETIC # 0.05 M/mm3 (0.02-0.16); RETIC % 1.7 % (0.5-3.52)
[2018-02-27 06:38] LABS: HEMATOCRIT 25.8 % (42.0-52.0); HEMOGLOBIN 8.3 g/dl (13.5-18.0); MEAN CORPUSCULAR HEMOGLOBIN 28 pg (27.0-31.0)
[2018-02-27 06:55] LABS: IRON,SERUM < 10 ug/dL (35-150)
[2018-02-27 06:57] LABS: CALCIUM 8.8 mg/dL (8.4-10.2); CREATININE, serum 1.3 mg/dL (0.66-1.25); MAGNESIUM 1.9 mg/dL (1.6-2.3); POTASSIUM 3.8 mmol/L (3.4-5.0)
[2018-02-27 07:04] LABS: TOTAL IRON BINDING CAPACITY 204 ug/dL (261-462)
[2018-02-27 16:14] VITALS: BP 110/50; PULSE 62; TEMP 98.1
[2018-02-28 06:00] VITALS: BP 142/54; PULSE 63; TEMP 97.3
[2018-02-28 15:34] VITALS: BP 128/51; PULSE 69; TEMP 98
[2018-03-01 05:18] VITALS: BP 129/42; PULSE 68; TEMP 98.1
[2018-03-01 07:56] LABS: CALCIUM 9.1 mg/dL (8.4-10.2); CREATININE, serum 1.3 mg/dL (0.66-1.25); POTASSIUM 4.1 mmol/L (3.4-5.0)
[2018-03-01 18:14] VITALS: BP 109/66; PULSE 63; TEMP 97.7
[2018-03-02 06:04] VITALS: BP 118/59; PULSE 65; TEMP 98.2
[2018-03-02 15:19] VITALS: BP 123/43; PULSE 63; TEMP 97.3
[2018-03-02 16:08] VITALS: BP 122/46; PULSE 62; TEMP 98.3
[2018-03-03 04:05] VITALS: BP 134/58; PULSE 63; TEMP 97.3
[2018-03-03 15:24] VITALS: BP 118/56; PULSE 57; TEMP 97.5
[2018-03-04 04:50] VITALS: BP 136/59; PULSE 63; TEMP 97.7
[2018-03-04 07:29] LABS: BASO % 0.6 % (0.0-2.0); EOS # 0.1 (0.0-0.7); GRAN # 4.9 (1.4-6.5); GRAN % 71.7 % (42.2-75.2); LYMPH # 1.2 (1.2-3.4); MEAN CELL VOLUME 86 fl (80.0-100.0); MEAN CORPUSCULAR HGB CONC 33 g/dl (33.0-37.0); MEAN PLATELET VOLUME 10.8 fl (7.4-10.4); MONO # 0.6 (0.1-0.6); MONO % 8.4 % (1.7-9.3); PLATELET COUNT 353 K/mm3 (130-400); RED BLOOD COUNT 3.46 M/mm3 (4.20-5.60); REDCELL DISTRIBUTION WIDTH-CV 14.6 % (11.5-14.5)
[2018-03-04 07:30] LABS: HEMATOCRIT 29.7 % (42.0-52.0); HEMOGLOBIN 9.7 g/dl (13.5-18.0); MEAN CORPUSCULAR HEMOGLOBIN 28 pg (27.0-31.0)
[2018-03-04 07:36] LABS: CALCIUM 9.7 mg/dL (8.4-10.2); CREATININE, serum 1.25 mg/dL (0.66-1.25); POTASSIUM 4.2 mmol/L (3.4-5.0)
[2018-03-04 15:34] VITALS: BP 132/64; PULSE 92; TEMP 97.5
[2018-03-05 06:44] VITALS: BP 112/47; PULSE 60; TEMP 98
[2018-03-05 17:39] VITALS: BP 129/58; PULSE 55; TEMP 98.5
[2018-03-06 06:44] VITALS: BP 121/58; PULSE 65; TEMP 98.3
[2018-03-06 18:07] VITALS: BP 128/54; PULSE 68; TEMP 97.4
[2018-03-07 03:59] VITALS: BP 144/63; PULSE 72; TEMP 98.2
[2018-03-07 14:55] LABS: CALCIUM 9.5 mg/dL (8.4-10.2); CREATININE, serum 1.22 mg/dL (0.66-1.25); POTASSIUM 4.3 mmol/L (3.4-5.0)
[2018-03-07 18:00] VITALS: BP 125/64; PULSE 76; TEMP 98.2
[2018-03-08 05:14] VITALS: BP 126/56; PULSE 68; TEMP 97.9
[2018-03-08 07:41] LABS: CALCIUM 9.4 mg/dL (8.4-10.2); CREATININE, serum 1.1 mg/dL (0.66-1.25); POTASSIUM 3.7 mmol/L (3.4-5.0)
[2018-03-08 16:17] VITALS: BP 90/59; PULSE 86; TEMP 98.7
[2018-03-08 18:00] VITALS: BP 120/60
[2018-03-09 06:00] VITALS: BP 141/60; PULSE 74; TEMP 98.6
[2018-03-09 11:52] LABS: CALCIUM 9.5 mg/dL (8.4-10.2); CREATININE, serum 1.13 mg/dL (0.66-1.25)
[2018-03-09 17:46] VITALS: BP 130/65; PULSE 60; TEMP 98.3
[2018-03-10 06:00] VITALS: BP 129/55; PULSE 66; TEMP 98
[2018-03-10 16:30] VITALS: BP 112/84; PULSE 71; TEMP 97.8
[2018-03-11 04:03] VITALS: BP 132/58; PULSE 78; TEMP 97.4
[2018-03-11] MEDS ORDERED: LIDODERM 5% PATC1 EA TP (08:48)
[2018-03-11] MEDS ORDERED: DULCOLAX S10 MG/SUPP RC (08:48)
[2018-03-11] MEDS ORDERED: SENOKOT S 50 MG1 TAB PO (08:49)
[2018-03-11] MEDS ORDERED: MIRALAX PA17 GM/Dose PO (08:49)
[2018-03-11] MEDS ORDERED: COLACE 100100 MG/CAP PO (08:49)
[2018-03-11] MEDS ORDERED: GLUCOPHAGE1000 MG PO (08:50)
[2018-03-11] MEDS ORDERED: MAG-OX 400400 MG/TAB PO (08:51)
[2018-03-11] MEDS ORDERED: JANUVIA50 MG PO (08:51)
[2018-03-11] MEDS ORDERED: AMBIEN 5MG TABLE5 MG PO (08:52)
[2018-03-11 15:27] VITALS: BP 129/48; PULSE 67; TEMP 97.9
[2018-03-12 06:00] VITALS: BP 146/62; PULSE 67; TEMP 99
[2018-03-12] MEDS ORDERED: NORCO 325 MG-51 TAB PO (09:03)
== END 2018-03-12 17:45 | disposition home health service (06) | DRG 71 ==
PROVIDERS: Family Medicine; Internal Medicine
DX: G93.41 Metabolic encephalopathy (principal); N17.9 Acute kidney failure, unspecified; N39.0 Urinary tract infection, site not specified; K56.7 Ileus, unspecified; Z66 Do not resuscitate; B95.61 Methicillin susceptible Staphylococcus aureus infection as the cause of diseases classified elsewhere; I12.9 Hypertensive chronic kidney disease with stage 1 through stage 4 chronic kidney disease, or unspecified chronic kidney disease; E11.22 Type 2 diabetes mellitus with diabetic chronic kidney disease; N18.2 Chronic kidney disease, stage 2 (mild); E87.6 Hypokalemia; E83.42 Hypomagnesemia; D64.9 Anemia, unspecified
CPT/HCPCS: 99222-AI; 99232-AI; 99239; J1650; J1815; J2270; J7030

== ENCOUNTER → 2018-03-20 | Outpatient (CLI) | payer MEDICARE, OTHER ==
[~2018-03-20] MED LIST changes: +AMBIEN 5MG TABLE5 MG PO; +MAG-OX 400400 MG/TAB PO; +MIRALAX PA17 GM/Dose PO; +NORCO 325 MG-51 TAB PO; +SENOKOT S 50 MG1 TAB PO
== END ==
LOC: ZCOL.LAB 16:23
DX: Z01.812 Encounter for preprocedural laboratory examination (principal); Z86.14 Personal history of Methicillin resistant Staphylococcus aureus infection

== ENCOUNTER 2018-05-09 07:00 | Outpatient (RCR) | payer MEDICARE, OTHER ==
[2018-03-29 09:31] VITALS: BP 119/50; PULSE 60; TEMP 97.2
[2018-03-29 17:58] VITALS: BP 108/71; PULSE 66; TEMP 98.1
[2018-03-30 07:17] VITALS: BP 123/50; PULSE 56; TEMP 97.6
[2018-03-31 07:20] VITALS: BP 115/48; PULSE 70; TEMP 97.7
[2018-04-01 07:25] VITALS: BP 124/53; PULSE 64; TEMP 97.9
[2018-04-02 09:20] VITALS: BP 134/53; PULSE 68; TEMP 98.4
[2018-04-02 18:04] VITALS: BP 135/56; PULSE 52; TEMP 97.3
[2018-04-03 07:36] VITALS: BP 117/61; PULSE 56; TEMP 97.4
[2018-04-03 18:08] VITALS: BP 120/62; PULSE 52; TEMP 97.9
[2018-04-04 08:02] VITALS: BP 122/61; PULSE 97; TEMP 97.7
[2018-04-04 18:10] VITALS: BP 134/68; PULSE 73; TEMP 97.2
[2018-04-05 07:25] VITALS: BP 134/57; PULSE 66; TEMP 97.8
[2018-04-05 18:17] VITALS: BP 137/52; PULSE 67; TEMP 97.7
[2018-04-06 07:11] VITALS: BP 128/54; PULSE 71; TEMP 98
[2018-04-07 07:12] VITALS: BP 127/49; PULSE 64; TEMP 98.2
[2018-04-08 07:03] VITALS: BP 163/57; PULSE 75; TEMP 97.2
[2018-04-08 18:10] VITALS: BP 141/56; PULSE 69; TEMP 97.8
[2018-04-09 07:16] VITALS: BP 135/39; PULSE 59; TEMP 97.6
[2018-04-09 18:23] VITALS: BP 121/77; PULSE 71; TEMP 98.3
[2018-04-10 07:09] VITALS: BP 131/63; PULSE 69; TEMP 98.7
[2018-04-10 18:08] VITALS: BP 158/62; PULSE 62; TEMP 98
[2018-04-11 07:48] VITALS: BP 144/56; PULSE 66; TEMP 98.4
[2018-04-11 17:57] VITALS: BP 130/57; PULSE 67; TEMP 98.1
[2018-04-12 07:07] VITALS: BP 127/49; PULSE 62; TEMP 97.8
[2018-04-12 18:11] VITALS: BP 147/62; PULSE 67; TEMP 97.1
[2018-04-13 07:12] VITALS: BP 132/56; PULSE 71; TEMP 97.6
[2018-04-14 07:11] VITALS: BP 136/52; PULSE 70; TEMP 97.2
[2018-04-15 07:25] VITALS: BP 130/40; PULSE 68; TEMP 97.2
[2018-04-15 18:01] VITALS: BP 141/65; PULSE 77; TEMP 98.4
[2018-04-16 07:11] VITALS: BP 153/67; PULSE 69; TEMP 98.8
[2018-04-16 18:08] VITALS: BP 147/59; PULSE 65; TEMP 97.9
[2018-04-17 07:10] VITALS: BP 129/35; PULSE 69; TEMP 98.1
[2018-04-17 18:18] VITALS: BP 145/61; PULSE 70; TEMP 98
[2018-04-18 07:22] VITALS: BP 130/60; PULSE 65; TEMP 97.6
[2018-04-18 17:09] VITALS: BP 142/58; PULSE 60; TEMP 97.9
[2018-04-19 07:23] VITALS: BP 136/52; PULSE 67; TEMP 97.4
[2018-04-19 18:13] VITALS: BP 117/41; PULSE 68
[2018-04-20 07:19] VITALS: BP 132/58; PULSE 66; TEMP 97.4
[2018-04-20 08:23] LABS: CREATININE, serum 1.18 mg/dL (0.66-1.25)
[2018-04-20 09:03] LABS: VANCOMYCIN TROUGH 32.19 ug/mL (7.00-20.00)
[2018-04-21 08:44] VITALS: BP 137/62; PULSE 64; TEMP 97.7
[2018-04-22 07:00] VITALS: BP 119/65; PULSE 83; TEMP 96.9
[2018-04-23 07:12] VITALS: BP 122/98; PULSE 66; TEMP 98.4
[2018-04-24 07:55] VITALS: BP 115/60; PULSE 60; TEMP 97.6
[2018-04-25 07:33] VITALS: BP 153/48; PULSE 64; TEMP 97.5
[2018-04-26 07:04] VITALS: BP 122/56; PULSE 73; TEMP 98.9
[2018-04-27 07:00] VITALS: BP 118/84; PULSE 72; TEMP 99.2
[2018-04-28 07:00] VITALS: BP 121/61; PULSE 63; TEMP 97.8
[2018-04-29 07:08] VITALS: BP 132/55; PULSE 61; TEMP 97.4
[2018-04-30 07:08] VITALS: BP 93/66; PULSE 70; TEMP 97.4
[2018-05-01 07:01] VITALS: BP 135/60; PULSE 67; TEMP 97.5
[2018-05-02 07:15] VITALS: BP 121/53; PULSE 65; TEMP 97.8
[2018-05-03 07:10] VITALS: BP 127/53; PULSE 73; TEMP 97.4
[2018-05-04 07:05] VITALS: BP 122/60; PULSE 70; TEMP 97.2
[2018-05-05 08:06] VITALS: BP 128/55; PULSE 77; TEMP 97.7
[2018-05-06 07:37] VITALS: BP 134/58; PULSE 74; TEMP 97.1
[2018-05-07 07:13] VITALS: BP 110/60; PULSE 71; TEMP 97.6
[2018-05-08 07:21] VITALS: BP 115/54; PULSE 65; TEMP 98.2
[~2018-05-09] VITALS: Ht 190.5 cm; Wt 98.3 kg
[~2018-05-09 07:00] MED LIST changes: +NORCO 325 MG-7.1 TAB; +VANCOMYCIN 11 G/VIA1 IV
[2018-05-09 07:25] VITALS: BP 120/54; PULSE 64; TEMP 97.8
[2018-05-09 11:58] VITALS: BP 132/60; PULSE 71; TEMP 97.5
== END 2018-05-09 12:41 | disposition home or self-care (01) ==
LOC: EUO 07:00
PROVIDERS: Orthopaedic Surgery
DX: T81.40XA Infection following a procedure, unspecified, initial encounter (principal); B95.8 Unspecified staphylococcus as the cause of diseases classified elsewhere; S91.002A Unspecified open wound, left ankle, initial encounter; Z45.2 Encounter for adjustment and management of vascular access device; Z95.9 Presence of cardiac and vascular implant and graft, unspecified; Z79.84 Long term (current) use of oral hypoglycemic drugs; Z79.82 Long term (current) use of aspirin; Z79.891 Long term (current) use of opiate analgesic; Z79.899 Other long term (current) drug therapy
CPT/HCPCS: C1751; J3370; J7050